=== PATIENT | male | born 1985 | race Caucasian/White ===

== ENCOUNTER 2023-12-03 13:27 | Outpatient (CLI) | payer BC, SELFPAY ==
--- NOTE | 2023-12-03 13:45 | CRLHL7_ITS ---
For Patients: As a result of the Century Cures Act, medical imaging exams and procedure reports are released immediately into your electronic medical record. You may view this report before your referring provider. If you have questions, please contact your health care provider. INDICATION: Lumbar radiculopathy. TECHNIQUE: Sagittal and axial T1, sagittal axial T2 and sagittal STIR images. FINDINGS: Relative straightening of the usual lumbar curve. No compression fractures. The conus medullaris appears normal and terminates normally at L1. No disc herniation or stenosis at T11-12, T12-L1, L1-2 or L2-3. At L3-4 degenerative disc desiccation mild annular bulge with a shallow right posterolateral protrusion and annular tear involves the right nerve root canal with some impingement of the exiting right L3 nerve root. At L4-5 degenerative disc desiccation mild annular bulge with a small midline disc extrusion extends slightly below the disc space there is mild deformity of the ventral thecal sac and evidence of some impingement of the traversing left L5 nerve root. The neural foramen are adequately patent. At L5-S1 normal disc height and disc hydration without disc herniation or stenosis the spinal canal or neural foramen. IMPRESSION: 1. Lumbar disc degeneration most prominent between L3 and L5; and superimposed on a congenitally narrowed lumbar spinal canal. 2. At L3-4 right posterolateral/foraminal disc protrusion with impingement of the exiting right L3 nerve root. 3. At L4-5 shallow central caudal disc extrusion with some impingement of the left L5 nerve root. Dictated by George Bates MD @ 12/06/2023 11:09:16 AM (Electronically Signed)
== END 2023-12-03 13:28 | disposition home or self-care (01) ==
LOC: MRI 13:29
PROVIDERS: PCP Family Medicine; Visit Provider Family Medicine
DX: M54.16 Radiculopathy, lumbar region (principal); M51.36 Other intervertebral disc degeneration, lumbar region; M51.26 Other intervertebral disc displacement, lumbar region
CPT/HCPCS: 72148

== ENCOUNTER 2024-04-14 10:06 | Outpatient (CLI) | payer BC, SELFPAY | END 2024-04-14 10:07 | disposition home or self-care (01) | LOC: INJ CL 10:08 | PROVIDERS: PCP Family Medicine; Visit Provider Family Medicine | DX: M54.16 Radiculopathy, lumbar region (principal); M51.369 Other intervertebral disc degeneration, lumbar region without mention of lumbar back pain or lower extremity pain | CPT/HCPCS: 62323; J0702; Q9966 ==